=== PATIENT | male | born 1970 | race Caucasian/White ===

== ENCOUNTER 2017-12-03 07:25 | Day surgery (SDC) | payer OTHER ==
[2017-12-03] MEDS ORDERED: SIMETHICONE 40 MG/0.6 ML ML ONE (07:47)
[2017-12-03] MEDS ORDERED: MEPERIDINE HCL/PF 100 MG/ML AMP ONE (07:47)
[2017-12-03] MEDS: MIDAZOLAM HCL 5 MG/5 ML VIAL ONE ×3 (09:15→09:19)
[2017-12-03 13:07] VITALS: BP_SYST 124
== END 2017-12-03 10:20 | disposition home or self-care (01) ==
LOC: SDS 07:25 → SMU 07:25 → SDS 10:20
PROVIDERS: ATTEND Internal Medicine Gastroenterology
DX: Z12.11 Encounter for screening for malignant neoplasm of colon (principal); D12.3 Benign neoplasm of transverse colon; D12.5 Benign neoplasm of sigmoid colon; K64.8 Other hemorrhoids; K21.9 Gastro-esophageal reflux disease without esophagitis; E11.9 Type 2 diabetes mellitus without complications; Z79.84 Long term (current) use of oral hypoglycemic drugs; M19.90 Unspecified osteoarthritis, unspecified site; Z80.0 Family history of malignant neoplasm of digestive organs
CPT/HCPCS: 45380; 88305; J2175; J2250; J7030

== ENCOUNTER 2018-04-22 11:06 | Outpatient (CLI) | payer OTHER ==
[2018-04-22 11:38] LABS: BILIRUBIN,URINE NEGATIVE (NEGATIVE); BLOOD, URINE NEGATIVE (NEGATIVE); CLARITY/URINE CLEAR (CLEAR); COLOR,URINE YELLOW (YELLOW); GLUCOSE,URINE NEGATIVE (NEGATIVE); KETONES,URINE NEGATIVE (NEGATIVE); LEUKOCYTE ESTERASE ,URINE NEGATIVE (NEGATIVE); NITRITE, URINE NEGATIVE (NEGATIVE); PH,URINE 5.5 (5.0-8.0); PROTEIN URINE NEGATIVE (NEGATIVE); UROBILINOGEN,URINE 0.2 (0.2-1.0)
[2018-04-22 11:39] LABS: BASOPHILS # (AUTO) 0.1 K/uL (0.0-0.2); BASOPHILS % (AUTO) 0.9 % (0.0-2.0); EOSINOPHILS # (AUTO) 0.2 K/uL (0.0-0.4); EOSINOPHILS % (AUTO) 2.3 % (0.0-4.0); HEMATOCRIT 42.4 % (36-54); HEMOGLOBIN 14.5 g/dL (14.0-18.0); LYMPHOCYTES % (AUTO) 26.1 % (20.5-51.5); MEAN CORPUSCULAR HEMOGLOBIN 28 pg (27-31); MEAN CORPUSCULAR HGB CONC 34 % (32-36); MEAN CORPUSCULAR VOLUME 82 fL (79.0-98.0); MONOCYTES # (AUTO) 0.6 K/uL (0.0-1.0); MONOCYTES % (AUTO) 8.6 % (1.7-9.3); NEUTROPHILS # (AUTO) 4.7 K/uL (1.8-7.7); NEUTROPHILS % (AUTO) 62.1 % (40.0-70.0); PLATELET COUNT (AUTO) 344 K/uL (130-430); RED BLOOD CELL COUNT(AUTO) 5.19 MIL/uL (4.2-6.2); RED CELL DISTRIBUTION WIDTH 13.7 % (9.0-15.0); WHITE BLOOD COUNT (AUTO) 7.6 K/uL (4.8-10.8)
[2018-04-22 12:17] LABS: ALBUMIN 3.8 g/dL (3.4-4.8); CALCIUM 8.5 mg/dL (8.4-11.0); CREATININE 0.79 mg/dL (0.55-1.30); POTASSIUM 3.9 mmol/L (3.5-5.1); THYROID STIMULATING HORMONE 0.9 uIu/mL (0.34-4.82); TOTAL BILIRUBIN 0.7 mg/dL (0.0-1.0)
[2018-04-22 12:50] LABS: URIC ACID 7.7 mg/dL (2.4-7.0)
[2018-04-23 11:53] LABS: HEMOGLOBIN A1C 6.1 % (4.8-5.6)
== END 2018-04-22 20:23 | disposition home or self-care (01) ==
LOC: SLB 11:06
PROVIDERS: ATTEND Internal Medicine
DX: Z00.01 Encounter for general adult medical examination with abnormal findings (principal); K21.9 Gastro-esophageal reflux disease without esophagitis; E11.9 Type 2 diabetes mellitus without complications; E78.5 Hyperlipidemia, unspecified; R79.89 Other specified abnormal findings of blood chemistry
CPT/HCPCS: 36415; 80053; 80061; 81003; 82306; 82607; 83036; 84443-TC; 84550-TC; 85025

== ENCOUNTER 2018-12-06 10:13 | Outpatient (CLI) | payer OTHER ==
[2018-12-06 11:27] LABS: BASOPHILS # (AUTO) 0.1 K/uL (0.0-0.2); BASOPHILS % (AUTO) 0.7 % (0.0-2.0); EOSINOPHILS # (AUTO) 0.2 K/uL (0.0-0.4); EOSINOPHILS % (AUTO) 1.9 % (0.0-4.0); HEMATOCRIT 43.7 % (36-54); HEMOGLOBIN 14.3 g/dL (14.0-18.0); LYMPHOCYTES % (AUTO) 23.9 % (20.5-51.5); MEAN CORPUSCULAR HEMOGLOBIN 27 pg (27-31); MEAN CORPUSCULAR HGB CONC 33 % (32-36); MEAN CORPUSCULAR VOLUME 81 fL (79.0-98.0); MONOCYTES # (AUTO) 0.7 K/uL (0.0-1.0); MONOCYTES % (AUTO) 8.4 % (1.7-9.3); NEUTROPHILS # (AUTO) 5.2 K/uL (1.8-7.7); NEUTROPHILS % (AUTO) 65.1 % (40.0-70.0); PLATELET COUNT (AUTO) 397 K/uL (130-430); RED BLOOD CELL COUNT(AUTO) 5.37 MIL/uL (4.2-6.2); RED CELL DISTRIBUTION WIDTH 13.5 % (9.0-15.0); WHITE BLOOD COUNT (AUTO) 8.2 K/uL (4.8-10.8)
[2018-12-06 11:34] LABS: ALBUMIN 3.8 g/dL (3.4-4.8); CALCIUM 9.4 mg/dL (8.4-11.0); CREATININE 0.78 mg/dL (0.55-1.30); TOTAL BILIRUBIN 0.4 mg/dL (0.0-1.0)
[2018-12-07 09:53] LABS: HEMOGLOBIN A1C 5.8 % (4.8-5.6)
[2018-12-07 11:07] LABS: PROSTATE SPECIFIC AG 0.4 ng/mL (0.0-4.0)
== END 2018-12-06 21:09 | disposition home or self-care (01) ==
LOC: SLB 10:13
PROVIDERS: ATTEND Internal Medicine
DX: E11.9 Type 2 diabetes mellitus without complications (principal); E78.5 Hyperlipidemia, unspecified; E55.9 Vitamin D deficiency, unspecified; R33.9 Retention of urine, unspecified
CPT/HCPCS: 36415; 80053; 80061; 82306; 82550-TC; 82607; 83036; 84153; 85025

== ENCOUNTER 2019-01-30 14:56 | Emergency (ER) | payer OTHER ==
[~2019-01-30] VITALS: Ht 180.3 cm; Wt 127.0 kg
[2019-01-30 14:56] VITALS: BP_SYST 145
[2019-01-30] MEDS ORDERED: KETOROLAC TROMETHAMINE 60 MG/2 ML VIAL IM ONE (15:15)
[2019-01-30] MEDS ORDERED: COLCHICINE 0.6 MG TABLET PO ONE (15:15)
[2019-01-30] MEDS ORDERED: PREDNISONE 20 MG TABLET PO ONE (15:15)
[2019-01-30 16:45] VITALS: BP_SYST 145
== END 2019-01-30 16:45 | disposition home or self-care (01) ==
LOC: SED 14:56
DX: M10.071 Idiopathic gout, right ankle and foot (principal); E78.00 Pure hypercholesterolemia, unspecified; E11.9 Type 2 diabetes mellitus without complications; R03.0 Elevated blood-pressure reading, without diagnosis of hypertension
CPT/HCPCS: 36415; 84550; 96372; 99283; J1885; J7512

== ENCOUNTER 2019-08-17 11:14 | Outpatient (CLI) | payer OTHER ==
[2019-08-17 12:01] LABS: CALCIUM 8.7 mg/dL (8.4-11.0); CREATININE 0.99 mg/dL (0.55-1.30); POTASSIUM 3.8 mmol/L (3.5-5.1); TOTAL BILIRUBIN 0.5 mg/dL (0.0-1.0)
[2019-08-17 12:05] LABS: BASOPHILS % (AUTO) 0.7 % (0.0-2.0); EOSINOPHILS # (AUTO) 0.1 K/uL (0.0-0.4); EOSINOPHILS % (AUTO) 1.4 % (0.0-4.0); HEMATOCRIT 41.3 % (36-54); HEMOGLOBIN 13.9 g/dL (14.0-18.0); LYMPHOCYTES # (AUTO) 1.5 K/uL (1.0-5.5); LYMPHOCYTES % (AUTO) 24.2 % (20.5-51.5); MEAN CORPUSCULAR HEMOGLOBIN 28 pg (27-31); MEAN CORPUSCULAR HGB CONC 34 % (32-36); MEAN CORPUSCULAR VOLUME 82 fL (79.0-98.0); MONOCYTES # (AUTO) 0.5 K/uL (0.0-1.0); NEUTROPHILS # (AUTO) 4.1 K/uL (1.8-7.7); NEUTROPHILS % (AUTO) 65.7 % (40.0-70.0); PLATELET COUNT (AUTO) 271 K/uL (130-430); RED BLOOD CELL COUNT(AUTO) 5.04 MIL/uL (4.2-6.2); RED CELL DISTRIBUTION WIDTH 14.8 % (9.0-15.0); WHITE BLOOD COUNT (AUTO) 6.3 K/uL (4.8-10.8)
[2019-08-18 08:40] LABS: HEMOGLOBIN A1C 6.1 % (4.8-5.6)
== END 2019-08-17 18:43 | disposition home or self-care (01) ==
LOC: SLB 11:14
PROVIDERS: ATTEND Internal Medicine
DX: E78.5 Hyperlipidemia, unspecified (principal); E55.9 Vitamin D deficiency, unspecified; E11.65 Type 2 diabetes mellitus with hyperglycemia; H26.9 Unspecified cataract; R97.20 Elevated prostate specific antigen [PSA]
CPT/HCPCS: 36415; 71046-TC; 80053; 80061; 82306; 82607; 83036; 84153; 84550-TC; 85025; 93005

== ENCOUNTER 2021-02-18 11:00 | Outpatient (CLI) | payer OTHER ==
[2021-02-18 11:33] LABS: BASOPHILS # (AUTO) 0.1 K/uL (0.0-0.2); BASOPHILS % (AUTO) 0.8 % (0.0-2.0); EOSINOPHILS # (AUTO) 0.1 K/uL (0.0-0.4); EOSINOPHILS % (AUTO) 1.5 % (0.0-4.0); HEMATOCRIT 39.6 % (36-54); HEMOGLOBIN 13.3 g/dL (14.0-18.0); LYMPHOCYTES # (AUTO) 2.2 K/uL (1.0-5.5); LYMPHOCYTES % (AUTO) 25.7 % (20.5-51.5); MEAN CORPUSCULAR HEMOGLOBIN 28 pg (27-31); MEAN CORPUSCULAR HGB CONC 34 % (32-36); MEAN CORPUSCULAR VOLUME 83 fL (79.0-98.0); MONOCYTES # (AUTO) 0.7 K/uL (0.0-1.0); MONOCYTES % (AUTO) 8.7 % (1.7-9.3); NEUTROPHILS # (AUTO) 5.3 K/uL (1.8-7.7); NEUTROPHILS % (AUTO) 63.3 % (40.0-70.0); PLATELET COUNT (AUTO) 287 K/uL (130-430); RED BLOOD CELL COUNT(AUTO) 4.78 MIL/uL (4.2-6.2); WHITE BLOOD COUNT (AUTO) 8.4 K/uL (4.8-10.8)
[2021-02-18 11:34] LABS: BILIRUBIN,URINE NEGATIVE (NEGATIVE); BLOOD, URINE NEGATIVE (NEGATIVE); CLARITY/URINE CLEAR (CLEAR); COLOR,URINE YELLOW (YELLOW); GLUCOSE,URINE NEGATIVE (NEGATIVE); KETONES,URINE NEGATIVE (NEGATIVE); LEUKOCYTE ESTERASE ,URINE NEGATIVE (NEGATIVE); NITRITE, URINE NEGATIVE (NEGATIVE); PROTEIN URINE NEGATIVE (NEGATIVE)
[2021-02-18 12:12] LABS: ALBUMIN 3.9 g/dL (3.4-4.8); CALCIUM 9.2 mg/dL (8.4-11.0); CREATININE 0.9 mg/dL (0.55-1.30); POTASSIUM 3.8 mmol/L (3.5-5.1); THYROID STIMULATING HORMONE 1.19 uIu/mL (0.36-3.74); TOTAL BILIRUBIN 0.2 mg/dL (0.0-1.0)
[2021-02-19 15:07] LABS: PROSTATE SPECIFIC AG 0.3 ng/mL (0.0-4.0)
== END 2021-02-18 20:31 | disposition home or self-care (01) ==
LOC: SLB 11:00
PROVIDERS: ATTEND Internal Medicine
DX: I10 Essential (primary) hypertension (principal); E11.65 Type 2 diabetes mellitus with hyperglycemia; E78.1 Pure hyperglyceridemia; E66.01 Morbid (severe) obesity due to excess calories; E55.9 Vitamin D deficiency, unspecified; E78.5 Hyperlipidemia, unspecified; N52.9 Male erectile dysfunction, unspecified
CPT/HCPCS: 36415; 80053; 80061; 81003; 82306; 82607; 83036; 84153; 84443; 85025

== ENCOUNTER 2021-06-25 10:25 | Outpatient (CLI) | payer OTHER | END 2021-06-25 20:01 | disposition home or self-care (01) | LOC: SCA 10:25 | PROVIDERS: ATTEND Internal Medicine | DX: I51.7 Cardiomegaly (principal); R00.0 Tachycardia, unspecified | CPT/HCPCS: 93005; 93306 ==

== ENCOUNTER 2021-07-08 09:30 | Outpatient (CLI) | payer OTHER | END 2021-07-08 20:41 | disposition home or self-care (01) | LOC: SMI 09:30 | PROVIDERS: ATTEND Internal Medicine | DX: M51.34 Other intervertebral disc degeneration, thoracic region (principal); M46.04 Spinal enthesopathy, thoracic region; M48.04 Spinal stenosis, thoracic region; M51.36 Other intervertebral disc degeneration, lumbar region; M48.061 Spinal stenosis, lumbar region without neurogenic claudication | CPT/HCPCS: 72146; 72148 ==

== ENCOUNTER 2021-09-21 18:22 | Inpatient (IN) | payer OTHER ==
[~2021-09-21] VITALS: Ht 177.8 cm; Wt 135.3 kg
[2021-09-21 18:22] VITALS: BP_SYST 156
--- NOTE | 2021-09-21 18:22 | NUR ---
BROUGHT BACK TO BED #6 AND TRIAGED. REPORT GIVEN TO TERENCE
--- NOTE | 2021-09-21 18:24 | NUR ---
Pt brought by self, A&Ox4, pt presents to ER with epigastric pain/ nausea, no vomiting noted at this time, pt denies chest pain, skin pink and warm, cap refill <3, VSS.
[2021-09-21] MEDS ORDERED: KETOROLAC TROMETHAMINE 60 MG/2 ML VIAL IM ONE ×2 (18:30→18:43)
[2021-09-21] MEDS ORDERED: ONDANSETRON 4 MG ODT TAB PO ONE (18:30)
--- NOTE | 2021-09-21 18:35 | NUR ---
Dr Gomez evaluating patient at bedside
--- NOTE | 2021-09-21 19:10 | NUR ---
Pt medicated as ordered , well tolerated
[2021-09-21 19:19] LABS: BASOPHILS % (AUTO) 0.4 % (0.0-2.0); EOSINOPHILS % (AUTO) 0.1 % (0.0-4.0); HEMATOCRIT 44.2 % (36-54); HEMOGLOBIN 14.6 g/dL (14.0-18.0); LYMPHOCYTES # (AUTO) 0.9 K/uL (1.0-5.5); LYMPHOCYTES % (AUTO) 8.7 % (20.5-51.5); MEAN CORPUSCULAR HEMOGLOBIN 27 pg (27-31); MEAN CORPUSCULAR HGB CONC 33 % (32-36); MEAN CORPUSCULAR VOLUME 80 fL (79.0-98.0); MONOCYTES # (AUTO) 0.5 K/uL (0.0-1.0); MONOCYTES % (AUTO) 4.5 % (1.7-9.3); NEUTROPHILS # (AUTO) 9.3 K/uL (1.8-7.7); NEUTROPHILS % (AUTO) 86.3 % (40.0-70.0); PLATELET COUNT (AUTO) 320 K/uL (130-430); RED BLOOD CELL COUNT(AUTO) 5.52 MIL/uL (4.2-6.2); RED CELL DISTRIBUTION WIDTH 14.9 % (9.0-15.0); WHITE BLOOD COUNT (AUTO) 10.8 K/uL (4.8-10.8)
[2021-09-21 19:31] LABS: PROTHROMBIN TIME 10.4 SECS (9.5-12.5)
[2021-09-21 19:32] LABS: ANION GAP 7 (5-15); CALCIUM 9.7 mg/dL (8.4-11.0); CHLORIDE 100 mmol/L (98-107); CREATININE 0.95 mg/dL (0.55-1.30); GLUCOSE 175 mg/dL (70-99); POTASSIUM 4.6 mmol/L (3.5-5.1); SODIUM SERUM 138 mmol/L (136-145); UREA NITROGEN, BLOOD 14 mg/dL (8-21)
[2021-09-21 19:33] LABS: GFR AFRICAN AMERICAN 107 mL/min (>90)
[2021-09-21 19:45] LABS: ALANINE AMINOTRANSFERASE 65 U/L (12-78); ALBUMIN 4.2 g/dL (3.4-4.8); AMYLASE 65 U/L (0-100); ASPARTATE AMINOTRANSFERASE 30 U/L (10-37); LACTATE DEHYDROGENASE 137 U/L (85-227); LIPASE 85 U/L (73-393); TOTAL BILIRUBIN 0.4 mg/dL (0.0-1.0)
[2021-09-21 20:00] LABS: C-REACTIVE PROTEIN QUANT < 0.2 mg/dL (0-0.5)
[2021-09-21] MEDS ORDERED: MORPHINE 4 MG INJ. 4 MG/ML VIAL IVP ONE (20:30)
[2021-09-21] MEDS ORDERED: ONDANSETRON HCL 4 MG/2 ML VIAL IVP ONE (20:30)
[2021-09-21] MEDS ORDERED: NACL 0.9% 1,000 ML IV ONE (20:30)
[2021-09-21] MEDS ORDERED: ONDANSETRON HCL 4 MG/2 ML VIAL IVP PRN (21:00)
[2021-09-21] MEDS ORDERED: MORPHINE 4 MG INJ. 4 MG/ML VIAL IVP PRN (21:00)
[2021-09-21] MEDS ORDERED: INSULIN REGULAR, HUMAN 100 UNITS/ML, 10 ML VIAL (humuLIN R) SUBCUT PRN (21:00)
[2021-09-21] MEDS ORDERED: CYAN100T44 PO (21:11)
[2021-09-21] MEDS ORDERED: FENO160 PO (21:11)
[2021-09-21] MEDS ORDERED: METF-518 PO (21:11)
[2021-09-21] MEDS ORDERED: LOSA1TAB43 PO (21:11)
[2021-09-21] MEDS ORDERED: ICOS1CAP PO (21:11)
[2021-09-21] MEDS ORDERED: ALLO300T2 PO (21:11)
[2021-09-21] MEDS ORDERED: ASPI-1155 PO (21:11)
[2021-09-21] MEDS ORDERED: VITD2000 PO (21:11)
[2021-09-21] MEDS: NACL 0.9% 1,000 ML IV SCH (21:12)
--- NOTE | 2021-09-21 22:25 | NUR ---
Pt A&Ox4, VSS, respirations even and unlabored, no vomiting noted at this time.
[2021-09-21] MEDS ORDERED: PANTOPRAZOLE SODIUM 40 MG/VIAL (PROTONIX) ONE (22:39)
[2021-09-21] MEDS ORDERED: PANTOPRAZOLE SODIUM 40 MG/VIAL (PROTONIX) IVP ONE (22:45)
--- NOTE | 2021-09-21 23:09 | NUR ---
Patient will be admitted to care of Dr Chambers . Admitted to Medsurg unit. Will go to room 133A . Belongings list completed. Complete and up to date summary report printed. SBAR report to be given at bedside with opportunity for questions.
[2021-09-21 23:52] VITALS: BP_SYST 141
--- NOTE | 2021-09-22 | NUR ---
ADMISSION: The patient, KRISTOFER MORALES, 51 y/o, M admitted by EUSEBIA TRAN MD, was given written information regarding hospital policies, unit procedures and contact persons. Valuables were checked and FALL PRECAUTIONS implemented also procedures explained CALL HEALY GIVEN TO PATIENT .
[2021-09-22 00:40] LABS: BILIRUBIN,URINE NEGATIVE (NEGATIVE); BLOOD, URINE NEGATIVE (NEGATIVE); CLARITY/URINE CLEAR (CLEAR); COLOR,URINE YELLOW (YELLOW); GLUCOSE,URINE NEGATIVE (NEGATIVE); KETONES,URINE NEGATIVE (NEGATIVE); LEUKOCYTE ESTERASE ,URINE NEGATIVE (NEGATIVE); NITRITE, URINE NEGATIVE (NEGATIVE); PROTEIN URINE NEGATIVE (NEGATIVE); UROBILINOGEN,URINE 0.2 (0.2-1.0)
--- NOTE | 2021-09-22 00:47 | NUR ---
URINE COLLECTED & SENT TO LAB .
--- NOTE | 2021-09-22 00:47 | NUR ---
Patient states he has SLEEP APNEA & USES BI PAP @ HOME , BUT DOES NOT WANT TO USE THE C PAP MACHINE FROM THIS HOSPITAL D/T POSSIBLE CONTAMINATION , & RT , ALANA AT THE BEDSIDE .
[2021-09-22 04:14] VITALS: BP_SYST 137
--- NOTE | 2021-09-22 04:15 | NUR ---
Hourly Rounding patient Resting HOB elevated patient ambulates call hendricks given to patient assist for comfort pillows used for off loading skin dry warm .
[2021-09-22 08:00] VITALS: BP_SYST 125
--- NOTE | 2021-09-22 08:14 | NUR ---
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
[2021-09-22] MEDS: NACL 0.9% 1,000 ML IV SCH (08:24)
[2021-09-22] MEDS ORDERED: PANTOPRAZOLE SODIUM 40 MG/VIAL (PROTONIX) IVP SCH (09:00)
--- NOTE | 2021-09-22 09:26 | NUR ---
CONSULTATION PAGED/CALLED Reason for Consultation: ABDOMINAL PAIN Person Who was Notified: MARIE Consulting Physician: GEO Cytotechnologist/Cytology Supervisor Specialty: GI Ordering Physician: MARC
--- NOTE | 2021-09-22 09:32 | NUR ---
CONSULTATION PAGED/CALLED Reason for Consultation: SBO Person Who was Notified: DOROTHY Consulting Physician: MYNOR Wood Pole Treater Specialty: SURGERY Ordering Physician: MARC
--- NOTE | 2021-09-22 09:53 | NUR ---
CONSULTATION PAGED/CALLED Reason for Consultation: CP Person Who was Notified: DOROTHY Consulting Physician: TASHIA Manager Advertising Specialty: CARDIO Ordering Physician: MARC
[2021-09-22 09:55] LABS: BASOPHILS # (AUTO) 0.1 K/uL (0.0-0.2); BASOPHILS % (AUTO) 0.7 % (0.0-2.0); EOSINOPHILS # (AUTO) 0.1 K/uL (0.0-0.4); EOSINOPHILS % (AUTO) 1.6 % (0.0-4.0); HEMATOCRIT 39.1 % (36-54); HEMOGLOBIN 12.9 g/dL (14.0-18.0); LYMPHOCYTES # (AUTO) 1.8 K/uL (1.0-5.5); LYMPHOCYTES % (AUTO) 22.3 % (20.5-51.5); MEAN CORPUSCULAR HEMOGLOBIN 27 pg (27-31); MEAN CORPUSCULAR HGB CONC 33 % (32-36); MEAN CORPUSCULAR VOLUME 80 fL (79.0-98.0); MONOCYTES # (AUTO) 0.8 K/uL (0.0-1.0); MONOCYTES % (AUTO) 10.8 % (1.7-9.3); NEUTROPHILS # (AUTO) 5.1 K/uL (1.8-7.7); NEUTROPHILS % (AUTO) 64.6 % (40.0-70.0); PLATELET COUNT (AUTO) 252 K/uL (130-430); RED BLOOD CELL COUNT(AUTO) 4.87 MIL/uL (4.2-6.2); RED CELL DISTRIBUTION WIDTH 14.9 % (9.0-15.0); WHITE BLOOD COUNT (AUTO) 7.9 K/uL (4.8-10.8)
[2021-09-22 10:12] LABS: ANION GAP 6 (5-15); CALCIUM 8.4 mg/dL (8.4-11.0); CHLORIDE 107 mmol/L (98-107); CREATININE 0.94 mg/dL (0.55-1.30); GLUCOSE 102 mg/dL (70-99); POTASSIUM 4.2 mmol/L (3.5-5.1); SODIUM SERUM 142 mmol/L (136-145); UREA NITROGEN, BLOOD 15 mg/dL (8-21)
[2021-09-22 10:15] LABS: GFR AFRICAN AMERICAN 109 mL/min (>90)
[2021-09-22 10:19] LABS: CHOLESTEROL 145 mg/dL (<200); HDL CHOLESTEROL 24 mg/dL (>45); LDL CHOLESTEROL 55 mg/dL (<100); TRIGLYCERIDES 520 mg/dL (30-150)
[2021-09-22] MEDS ORDERED: GASTROGRAFIN 120 ML ONE (10:24)
[2021-09-22 10:30] LABS: ALANINE AMINOTRANSFERASE 50 U/L (12-78); ALBUMIN 3.6 g/dL (3.4-4.8); ASPARTATE AMINOTRANSFERASE 20 U/L (10-37); TOTAL BILIRUBIN 0.3 mg/dL (0.0-1.0)
[2021-09-22 10:35] LABS: FREE T4 (FREE THYROXINE) 1.3 ng/dL (0.6-1.6); THYROID STIMULATING HORMONE 1.21 uIu/mL (0.34-4.82)
--- NOTE | 2021-09-22 10:49 | NUR ---
PATIENT TAKEN FOR SMALL BOWEL FOLLOW THROUGH, IV DISCONNECTED FROM IV PUMP, PATIENT TAKEN IN WHEEL CHAIR, ALL QUESTIONS ANSWERED
[2021-09-22 12:00] VITALS: BP_SYST 140
--- NOTE | 2021-09-22 12:45 | NUR ---
patient returned from small bowel follow through with radiology, tolerated well, reconnected to iv fluids, patient asked if he could drink liquids now because he feels dehydrated, explained that the iv fluids would help rehydrate him and that he is still ordered to be NPO so no oral liquids can be given at this time.
--- NOTE | 2021-09-22 16:00 | NUR ---
PATIENT LEFT AMA, IV REMOVED, AMA FORM SIGNED AND IN CHART, WRIST BAND REMOVED, EDUCATED THAT HE IS NOT MEDICALLY CLEARED FOR DISCHARGE, HE SPOKE WITH DR TRAN OVER THE PHONE AND DR TRAN GAVE SOME SUGGESTIONS SUCH FOLLOWING A FULL LIQUID DIET FOR A COUPLE DAYS AND TO TAKE AN ANTACID SUCH PROTONIX IF HE HAS IT BUT HE DID NOT CLEAR HIM FOR DISCHARGE BECAUSE HE HAD NOT BEEN CLEARED BY DR GUARDADO YET.
--- NOTE | 2021-09-22 16:10 | NUR ---
PATIENT WALKED OUT AND ESCORTED OUT BY SECURITY, TOLERATED WELL
== END 2021-09-22 14:10 | disposition left against medical advice (07) | DRG 389 ==
LOC: SED 18:22 → SMU 20:57
PROVIDERS: ADMIT Internal Medicine; ATTEND Internal Medicine
DX: K56.609 Unspecified intestinal obstruction, unspecified as to partial versus complete obstruction (principal); Z68.41 Body mass index [BMI] 40.0-44.9, adult; E11.9 Type 2 diabetes mellitus without complications; E66.01 Morbid (severe) obesity due to excess calories; E78.5 Hyperlipidemia, unspecified; K76.0 Fatty (change of) liver, not elsewhere classified; R07.89 Other chest pain; Z20.822 Contact with and (suspected) exposure to COVID-19; Z53.29 Procedure and treatment not carried out because of patient's decision for other reasons; K57.90 Diverticulosis of intestine, part unspecified, without perforation or abscess without bleeding; I10 Essential (primary) hypertension; Z80.0 Family history of malignant neoplasm of digestive organs; Z82.49 Family history of ischemic heart disease and other diseases of the circulatory system; Z87.19 Personal history of other diseases of the digestive system; Z86.010 Personal history of colon polyps; Z88.2 Allergy status to sulfonamides; Z79.899 Other long term (current) drug therapy; Z79.82 Long term (current) use of aspirin; Z83.3 Family history of diabetes mellitus
CPT/HCPCS: 36415; 71045; 74250-TC; 76376; 76700-TC; 80053; 80061; 81003; 82150; 82962; 83036; 83605; 83615; 83690; 84153; 84439; 84443; 84484; 85025; 85610-TC; 85730-TC; 86140; 93005; C9113; J1885; J2270; J2405; Q0162; Q9963

== ENCOUNTER 2021-12-26 08:25 | Day surgery (SDC) | payer OTHER, SELFPAY ==
[~2021-12-26] VITALS: Ht 177.8 cm; Wt 83.9 kg
[~2021-12-26 08:25] MED LIST: ALLO300T2 PO; ASPI-1155 PO; CYAN100T44 PO; FENO160 PO; ICOS1CAP PO; LOSA1TAB43 PO; METF-518 PO; VITD2000 PO
[2021-12-26] MEDS: MIDAZOLAM HCL 5 MG/5 ML VIAL ONE ×4 (10:00→10:07)
[2021-12-26] MEDS ORDERED: MEPERIDINE 100 MG INJ. 100 MG/ML VIAL ONE (10:00)
[2021-12-26] MEDS ORDERED: MEPERIDINE 100 MG INJ. 100 MG/ML VIAL IV ONE ×2 (10:11→10:26)
[2021-12-26] MEDS ORDERED: MIDAZOLAM HCL 5 MG/5 ML VIAL ONE (10:20)
[2021-12-26 13:56] VITALS: BP_SYST 121
== END 2021-12-26 12:15 | disposition home or self-care (01) ==
LOC: SDS 08:25 → SMU 08:26 → SDS 12:15
PROVIDERS: ATTEND Internal Medicine Gastroenterology
DX: R19.4 Change in bowel habit (principal); K29.50 Unspecified chronic gastritis without bleeding; K64.8 Other hemorrhoids; E11.9 Type 2 diabetes mellitus without complications; Z80.0 Family history of malignant neoplasm of digestive organs; Z88.2 Allergy status to sulfonamides; Z20.822 Contact with and (suspected) exposure to COVID-19
CPT/HCPCS: 36415; 43239; 45380; 45385; 82962; 87081; 87426; 88305; 88312; 88313; 99152; 99153; G0378; J2175; J2250; U0003; 45382; 45384

== ENCOUNTER 2022-05-19 11:17 | Outpatient (CLI) | payer OTHER ==
[2022-05-19 12:16] LABS: BASOPHILS # (AUTO) 0.1 K/uL (0.0-0.2); EOSINOPHILS # (AUTO) 0.2 K/uL (0.0-0.4); EOSINOPHILS % (AUTO) 2.3 % (0.0-4.0); HEMATOCRIT 42.6 % (36-54); HEMOGLOBIN 14.6 g/dL (14.0-18.0); LYMPHOCYTES # (AUTO) 1.8 K/uL (1.0-5.5); LYMPHOCYTES % (AUTO) 26.3 % (20.5-51.5); MEAN CORPUSCULAR HEMOGLOBIN 27 pg (27-31); MEAN CORPUSCULAR HGB CONC 34 % (32-36); MEAN CORPUSCULAR VOLUME 79 fL (79.0-98.0); MONOCYTES # (AUTO) 0.6 K/uL (0.0-1.0); MONOCYTES % (AUTO) 9.6 % (1.7-9.3); NEUTROPHILS # (AUTO) 4.1 K/uL (1.8-7.7); NEUTROPHILS % (AUTO) 60.8 % (40.0-70.0); PLATELET COUNT (AUTO) 268 K/uL (130-430); RED BLOOD CELL COUNT(AUTO) 5.36 MIL/uL (4.2-6.2); RED CELL DISTRIBUTION WIDTH 14.6 % (9.0-15.0); WHITE BLOOD COUNT (AUTO) 6.7 K/uL (4.8-10.8)
[2022-05-19 12:41] LABS: BILIRUBIN,URINE NEGATIVE (NEGATIVE); BLOOD, URINE NEGATIVE (NEGATIVE); CLARITY/URINE CLEAR (CLEAR); COLOR,URINE YELLOW (YELLOW); GLUCOSE,URINE NEGATIVE (NEGATIVE); KETONES,URINE NEGATIVE (NEGATIVE); LEUKOCYTE ESTERASE ,URINE NEGATIVE (NEGATIVE); NITRITE, URINE NEGATIVE (NEGATIVE); PROTEIN URINE NEGATIVE (NEGATIVE); UROBILINOGEN,URINE 0.2 (0.2-1.0)
[2022-05-19 12:46] LABS: ALBUMIN 4.2 g/dL (3.4-4.8); CALCIUM 9.2 mg/dL (8.4-11.0); CREATININE 0.77 mg/dL (0.55-1.30); POTASSIUM 3.6 mmol/L (3.5-5.1); TOTAL BILIRUBIN 0.7 mg/dL (0.0-1.0); URIC ACID 5.4 mg/dL (2.4-7.0)
[2022-05-19 13:14] LABS: THYROID STIMULATING HORMONE 0.93 uIu/mL (0.36-3.74)
[2022-05-20 06:26] LABS: PROSTATE SPECIFIC AG 0.3 ng/mL (0.0-4.0)
[2022-05-26 14:45] LABS: HEMOGLOBIN A1C 6.2 % (4.8-5.6)
== END 2022-05-19 19:50 | disposition home or self-care (01) ==
LOC: SLB 11:17
PROVIDERS: ATTEND Internal Medicine
DX: E11.65 Type 2 diabetes mellitus with hyperglycemia (principal); M17.4 Other bilateral secondary osteoarthritis of knee; M10.9 Gout, unspecified; E66.2 Morbid (severe) obesity with alveolar hypoventilation; E78.5 Hyperlipidemia, unspecified
CPT/HCPCS: 36415; 80053; 80061; 81003; 82306; 82607; 83036; 84153; 84443; 84550; 85025

== ENCOUNTER 2022-08-04 08:20 | Outpatient (CLI) | payer OTHER ==
[2022-08-04 09:29] LABS: CALCIUM 9.4 mg/dL (8.4-11.0); CREATININE 0.96 mg/dL (0.55-1.30); POTASSIUM 4.3 mmol/L (3.5-5.1); TOTAL BILIRUBIN 0.5 mg/dL (0.0-1.0)
[2022-08-04 09:40] LABS: URIC ACID 4.4 mg/dL (2.4-7.0)
[2022-08-04 09:41] LABS: THYROID STIMULATING HORMONE 1.14 uIu/mL (0.34-4.82)
[2022-08-04 09:43] LABS: BASOPHILS # (AUTO) 0.1 K/uL (0.0-0.2); BASOPHILS % (AUTO) 0.8 % (0.0-2.0); EOSINOPHILS # (AUTO) 0.2 K/uL (0.0-0.4); EOSINOPHILS % (AUTO) 2.7 % (0.0-4.0); HEMATOCRIT 39.1 % (36-54); HEMOGLOBIN 13.6 g/dL (14.0-18.0); LYMPHOCYTES # (AUTO) 1.8 K/uL (1.0-5.5); LYMPHOCYTES % (AUTO) 26.8 % (20.5-51.5); MEAN CORPUSCULAR HEMOGLOBIN 28 pg (27-31); MEAN CORPUSCULAR HGB CONC 35 % (32-36); MEAN CORPUSCULAR VOLUME 79 fL (79.0-98.0); MONOCYTES # (AUTO) 0.8 K/uL (0.0-1.0); MONOCYTES % (AUTO) 11.6 % (1.7-9.3); NEUTROPHILS # (AUTO) 3.9 K/uL (1.8-7.7); NEUTROPHILS % (AUTO) 58.1 % (40.0-70.0); PLATELET COUNT (AUTO) 313 K/uL (130-430); RED BLOOD CELL COUNT(AUTO) 4.92 MIL/uL (4.2-6.2); RED CELL DISTRIBUTION WIDTH 14.8 % (9.0-15.0); WHITE BLOOD COUNT (AUTO) 6.7 K/uL (4.8-10.8)
[2022-08-05 10:31] LABS: HEMOGLOBIN A1C 6.3 % (4.8-5.6)
[2022-08-05 13:07] LABS: PROSTATE SPECIFIC AG 0.3 ng/mL (0.0-4.0)
== END 2022-08-04 18:56 | disposition home or self-care (01) ==
LOC: SRD 08:20
PROVIDERS: ATTEND Specialist
DX: I11.9 Hypertensive heart disease without heart failure (principal); E11.65 Type 2 diabetes mellitus with hyperglycemia; R00.0 Tachycardia, unspecified; E66.01 Morbid (severe) obesity due to excess calories; E78.2 Mixed hyperlipidemia; N52.8 Other male erectile dysfunction; E53.8 Deficiency of other specified B group vitamins; E55.9 Vitamin D deficiency, unspecified
CPT/HCPCS: 36415; 80053; 80061; 82607; 83002; 83036; 84153; 84403; 84443; 84550; 85025; 86677; 93005; 93306

== ENCOUNTER 2022-12-22 10:34 | Outpatient (CLI) | payer OTHER ==
[2022-12-22 11:29] LABS: BASOPHILS # (AUTO) 0.1 K/uL (0.0-0.2); BASOPHILS % (AUTO) 1.1 % (0.0-2.0); EOSINOPHILS # (AUTO) 0.1 K/uL (0.0-0.4); HEMATOCRIT 40.9 % (36-54); HEMOGLOBIN 13.6 g/dL (14.0-18.0); LYMPHOCYTES # (AUTO) 1.5 K/uL (1.0-5.5); LYMPHOCYTES % (AUTO) 23.6 % (20.5-51.5); MEAN CORPUSCULAR HEMOGLOBIN 27 pg (27-31); MEAN CORPUSCULAR HGB CONC 33 % (32-36); MEAN CORPUSCULAR VOLUME 81 fL (79.0-98.0); MONOCYTES # (AUTO) 0.6 K/uL (0.0-1.0); MONOCYTES % (AUTO) 9.2 % (1.7-9.3); NEUTROPHILS # (AUTO) 4.1 K/uL (1.8-7.7); NEUTROPHILS % (AUTO) 64.1 % (40.0-70.0); PLATELET COUNT (AUTO) 288 K/uL (130-430); RED BLOOD CELL COUNT(AUTO) 5.08 MIL/uL (4.2-6.2); RED CELL DISTRIBUTION WIDTH 14.4 % (9.0-15.0); WHITE BLOOD COUNT (AUTO) 6.3 K/uL (4.8-10.8)
[2022-12-22 12:02] LABS: CALCIUM 9.2 mg/dL (8.4-11.0); CREATININE 0.91 mg/dL (0.55-1.30); THYROID STIMULATING HORMONE 0.64 uIu/mL (0.34-4.82); TOTAL BILIRUBIN 0.4 mg/dL (0.0-1.0)
== END 2022-12-22 18:13 | disposition home or self-care (01) ==
LOC: SLB 10:34
PROVIDERS: ATTEND Internal Medicine
DX: E11.65 Type 2 diabetes mellitus with hyperglycemia (principal); E78.5 Hyperlipidemia, unspecified; E66.9 Obesity, unspecified; E55.9 Vitamin D deficiency, unspecified; E56.9 Vitamin deficiency, unspecified
CPT/HCPCS: 36415; 80053; 80061; 82306; 82607; 83037; 84443; 85025

== ENCOUNTER 2023-07-27 13:35 | Outpatient (CLI) | payer OTHER ==
[2023-07-27 15:15] LABS: BASOPHILS # (AUTO) 0.1 K/uL (0.0-0.2); BASOPHILS % (AUTO) 1.4 % (0.0-2.0); EOSINOPHILS # (AUTO) 0.2 K/uL (0.0-0.4); EOSINOPHILS % (AUTO) 1.7 % (0.0-4.0); HEMATOCRIT 42.8 % (36-54); HEMOGLOBIN 14.7 g/dL (14.0-18.0); LYMPHOCYTES % (AUTO) 22.1 % (20.5-51.5); MEAN CORPUSCULAR HEMOGLOBIN 28 pg (27-31); MEAN CORPUSCULAR HGB CONC 34 % (32-36); MEAN CORPUSCULAR VOLUME 80 fL (79.0-98.0); MONOCYTES # (AUTO) 0.9 K/uL (0.0-1.0); MONOCYTES % (AUTO) 9.5 % (1.7-9.3); NEUTROPHILS % (AUTO) 65.3 % (40.0-70.0); PLATELET COUNT (AUTO) 336 K/uL (130-430); RED BLOOD CELL COUNT(AUTO) 5.34 MIL/uL (4.2-6.2); RED CELL DISTRIBUTION WIDTH 14.9 % (9.0-15.0); WHITE BLOOD COUNT (AUTO) 9.1 K/uL (4.8-10.8)
[2023-07-27 15:16] LABS: HEMOGLOBIN A1C 5.86 % (<5.7)
[2023-07-27 15:30] LABS: ALBUMIN 3.8 g/dL (3.4-4.8); CALCIUM 7.7 mg/dL (8.4-11.0); CREATININE 0.72 mg/dL (0.55-1.30); POTASSIUM 3.8 mmol/L (3.5-5.1); THYROID STIMULATING HORMONE 0.99 uIu/mL (0.36-3.74); TOTAL BILIRUBIN 0.7 mg/dL (0.0-1.0); TOTAL PROTEIN, SERUM 7.8 g/dL (6.4-8.3); URIC ACID 4.9 mg/dL (2.4-7.0)
[2023-07-28 06:06] LABS: PROSTATE SPECIFIC AG 0.3 ng/mL (0.0-4.0)
== END 2023-07-27 20:10 | disposition home or self-care (01) ==
LOC: SLB 13:35
PROVIDERS: ATTEND Internal Medicine
DX: E11.65 Type 2 diabetes mellitus with hyperglycemia (principal); E78.5 Hyperlipidemia, unspecified; N40.1 Benign prostatic hyperplasia with lower urinary tract symptoms; E55.9 Vitamin D deficiency, unspecified; E56.9 Vitamin deficiency, unspecified
CPT/HCPCS: 36415; 80053; 80061; 82306; 82607; 83037; 84153; 84443; 84550; 85025

== ENCOUNTER 2023-08-03 09:05 | Outpatient (CLI) | payer OTHER | END 2023-08-03 19:41 | disposition home or self-care (01) | LOC: SUS 09:05 | PROVIDERS: ATTEND Internal Medicine | DX: E04.2 Nontoxic multinodular goiter (principal) | CPT/HCPCS: 76536-TC ==

== ENCOUNTER 2023-08-14 11:51 | Outpatient (CLI) | payer OTHER | END 2023-08-14 19:35 | disposition home or self-care (01) | LOC: SRD 11:51 | PROVIDERS: ATTEND Internal Medicine | DX: M17.11 Unilateral primary osteoarthritis, right knee (principal) | CPT/HCPCS: 73564 ==

== ENCOUNTER 2023-08-31 09:51 | Outpatient (CLI) | payer OTHER | END 2023-08-31 17:49 | disposition home or self-care (01) | LOC: SMI 09:51 | PROVIDERS: ATTEND Internal Medicine | DX: M48.02 Spinal stenosis, cervical region (principal); M50.21 Other cervical disc displacement, high cervical region; M51.24 Other intervertebral disc displacement, thoracic region; M51.34 Other intervertebral disc degeneration, thoracic region; M51.27 Other intervertebral disc displacement, lumbosacral region; M47.817 Spondylosis without myelopathy or radiculopathy, lumbosacral region; M48.061 Spinal stenosis, lumbar region without neurogenic claudication; M25.78 Osteophyte, vertebrae; Z87.898 Personal history of other specified conditions | CPT/HCPCS: 72141; 72146; 72148 ==

== ENCOUNTER 2023-09-17 10:36 | Emergency (ER) | payer OTHER ==
[~2023-09-17] VITALS: Ht 177.8 cm; Wt 121.6 kg
[2023-09-17 10:44] VITALS: BP_SYST 142; PULSE 103; RESP 18; TEMP 98.3; O2SAT 97
[2023-09-17 11:35] LABS: BASOPHILS % (AUTO) 0.5 % (0.0-2.0); EOSINOPHILS % (AUTO) 0.1 % (0.0-4.0); HEMATOCRIT 48.1 % (36-54); HEMOGLOBIN 15.4 g/dL (14.0-18.0); LYMPHOCYTES # (AUTO) 0.9 K/uL (1.0-5.5); LYMPHOCYTES % (AUTO) 9.5 % (20.5-51.5); MEAN CORPUSCULAR HEMOGLOBIN 26 pg (27-31); MEAN CORPUSCULAR HGB CONC 32 % (32-36); MEAN CORPUSCULAR VOLUME 80 fL (79.0-98.0); MONOCYTES # (AUTO) 0.6 K/uL (0.0-1.0); MONOCYTES % (AUTO) 6.1 % (1.7-9.3); NEUTROPHILS # (AUTO) 7.9 K/uL (1.8-7.7); NEUTROPHILS % (AUTO) 83.8 % (40.0-70.0); PLATELET COUNT (AUTO) 312 K/uL (130-430); RED BLOOD CELL COUNT(AUTO) 6.05 MIL/uL (4.2-6.2); RED CELL DISTRIBUTION WIDTH 15.1 % (9.0-15.0); WHITE BLOOD COUNT (AUTO) 9.4 K/uL (4.8-10.8)
[2023-09-17 11:45] LABS: ANION GAP 10 (5-15); CALCIUM 10.4 mg/dL (8.4-11.0); CARBON DIOXIDE 30 mmol/L (23-29); CHLORIDE 98 mmol/L (98-107); CREATININE 0.96 mg/dL (0.55-1.30); GFR AFRICAN AMERICAN 105 mL/min (>90); GLUCOSE 116 mg/dL (74-106); POTASSIUM 4.3 mmol/L (3.5-5.1); SODIUM SERUM 138 mmol/L (136-145); UREA NITROGEN, BLOOD 16 mg/dL (8-21)
[2023-09-17] MEDS ORDERED: MORPHINE 4 MG INJ. 4 MG/ML VIAL IM ONE (11:45)
[2023-09-17] MEDS ORDERED: ONDANSETRON 4 MG ODT TAB PO ONE (11:45)
[2023-09-17 11:51] LABS: ALANINE AMINOTRANSFERASE 38 U/L (12-78); ALBUMIN 4.6 g/dL (3.4-4.8); ASPARTATE AMINOTRANSFERASE 21 U/L (10-37); LIPASE 28 U/L (16-77); TOTAL BILIRUBIN 0.7 mg/dL (0.0-1.0); TOTAL PROTEIN, SERUM 8.9 g/dL (6.4-8.3)
[2023-09-17 11:53] LABS: GFR NON AFRICAN-AMERICAN 87 mL/min (>90)
[2023-09-17 11:54] LABS: INR 1.1 (0.80-1.20); PROTHROMBIN TIME 11.1 SECS (9.5-12.5)
[2023-09-17 12:02] LABS: ACETONE, SERUM NEGATIVE (NEGATIVE)
[2023-09-17 12:04] LABS: AMYLASE 50 U/L (0-100)
[2023-09-17] MEDS ORDERED: PANTOPRAZOLE SODIUM 40 MG TAB PO ONE (13:00)
[2023-09-17] MEDS ORDERED: OMEP20CA15 PO (13:53)
[2023-09-17] MEDS ORDERED: ONDA-8 TL (13:53)
[2023-09-17 13:59] VITALS: BP_SYST 130; PULSE 81; RESP 20; TEMP 98.3; O2SAT 97
== END 2023-09-17 13:59 | disposition home or self-care (01) ==
LOC: SED 10:36
DX: K29.70 Gastritis, unspecified, without bleeding (principal); R10.12 Left upper quadrant pain; R11.2 Nausea with vomiting, unspecified; R07.2 Precordial pain; E11.9 Type 2 diabetes mellitus without complications; I10 Essential (primary) hypertension; Z79.899 Other long term (current) drug therapy
CPT/HCPCS: 99285; 74176; 71045; 80053; 82009; 82150; 83690; 85025; 85610; 85730; 84484; 36415; 93005; 76376; 96372; 83605; 82397; Q0162; J2270

== ENCOUNTER 2023-10-26 10:12 | Outpatient (CLI) | payer OTHER ==
[~2023-10-26 10:12] MED LIST changes: +OMEP20CA15 PO; +ONDA-8 TL
[2023-10-26 11:33] LABS: ALBUMIN 4.1 g/dL (3.4-4.8); CALCIUM 9.8 mg/dL (8.4-11.0); CREATININE 0.77 mg/dL (0.55-1.30); FREE T4 (FREE THYROXINE) 1.2 ng/dL (0.6-1.6); POTASSIUM 4.2 mmol/L (3.5-5.1); THYROID STIMULATING HORMONE 1.03 uIu/mL (0.34-4.82); TOTAL BILIRUBIN 0.5 mg/dL (0.0-1.0); TOTAL PROTEIN, SERUM 7.8 g/dL (6.4-8.3)
[2023-10-27 11:06] LABS: CORTISOL (SERUM) 10.5 ug/dL (6.2-19.4)
[2023-10-27 15:06] LABS: THYROID PEROXIDASE (TPO) AB 10 IU/mL (0-34)
[2023-10-28 12:06] LABS: ACTH, PLASMA 67.9 pg/mL (7.2-63.3)
[2023-11-02 12:18] LABS: CREATININE, URINE 88.9 mg/dL; MICROALBUMIN URINE RANDOM 3.2 ug/ml (NOT ESTABLISHED)
[2023-11-02 12:19] LABS: ALDOSTERONE 3.1; ANTI-THYROGLOBULIN AB <1.0
== END 2023-10-26 19:11 | disposition home or self-care (01) ==
LOC: SLB 10:12
PROVIDERS: ATTEND Internal Medicine
DX: E11.65 Type 2 diabetes mellitus with hyperglycemia (principal); E78.5 Hyperlipidemia, unspecified; E55.9 Vitamin D deficiency, unspecified; R00.0 Tachycardia, unspecified; M54.40 Lumbago with sciatica, unspecified side; E04.2 Nontoxic multinodular goiter; D35.01 Benign neoplasm of right adrenal gland; D35.00 Benign neoplasm of unspecified adrenal gland; E26.09 Other primary hyperaldosteronism; I15.9 Secondary hypertension, unspecified
CPT/HCPCS: 36415; 80053; 80061; 82024; 82043; 82088; 82306; 82530; 82533; 82570; 82607; 82627; 83037; 83835; 84244; 84439; 84443; 86376; 86800

== ENCOUNTER 2024-05-28 08:30 | Outpatient (CLI) | payer OTHER ==
[2024-05-28 09:15] LABS: BILIRUBIN,URINE NEGATIVE (NEGATIVE); BLOOD, URINE NEGATIVE (NEGATIVE); CLARITY/URINE CLEAR (CLEAR); COLOR,URINE YELLOW (YELLOW); GLUCOSE,URINE NEGATIVE (NEGATIVE); KETONES,URINE NEGATIVE (NEGATIVE); LEUKOCYTE ESTERASE ,URINE NEGATIVE (NEGATIVE); NITRITE, URINE NEGATIVE (NEGATIVE); PROTEIN URINE NEGATIVE (NEGATIVE)
[2024-05-28 09:20] LABS: BASOPHILS # (AUTO) 0.1 K/uL (0.0-0.2); EOSINOPHILS # (AUTO) 0.2 K/uL (0.0-0.4); EOSINOPHILS % (AUTO) 2.3 % (0.0-4.0); HEMATOCRIT 42.1 % (36-54); LYMPHOCYTES # (AUTO) 1.6 K/uL (1.0-5.5); LYMPHOCYTES % (AUTO) 24.1 % (20.5-51.5); MEAN CORPUSCULAR HEMOGLOBIN 27 pg (27-31); MEAN CORPUSCULAR HGB CONC 33 % (32-36); MEAN CORPUSCULAR VOLUME 82 fL (79.0-98.0); MONOCYTES # (AUTO) 0.7 K/uL (0.0-1.0); MONOCYTES % (AUTO) 10.4 % (1.7-9.3); NEUTROPHILS # (AUTO) 4.2 K/uL (1.8-7.7); NEUTROPHILS % (AUTO) 62.2 % (40.0-70.0); PLATELET COUNT (AUTO) 319 K/uL (130-430); RED BLOOD CELL COUNT(AUTO) 5.14 MIL/uL (4.2-6.2); RED CELL DISTRIBUTION WIDTH 14.4 % (9.0-15.0); WHITE BLOOD COUNT (AUTO) 6.8 K/uL (4.8-10.8)
[2024-05-28 10:23] LABS: ALANINE AMINOTRANSFERASE 32 U/L (12-78); ANION GAP 8 (5-15); ASPARTATE AMINOTRANSFERASE 18 U/L (10-37); CALCIUM 9.6 mg/dL (8.4-11.0); CARBON DIOXIDE 29 mmol/L (23-29); CHLORIDE 103 mmol/L (98-107); CREATININE 0.86 mg/dL (0.55-1.30); GFR AFRICAN AMERICAN 120 mL/min (>90); GFR NON AFRICAN-AMERICAN 99 mL/min (>90); GLUCOSE 100 mg/dL (74-106); POTASSIUM 4.2 mmol/L (3.5-5.1); SODIUM SERUM 140 mmol/L (136-145); THYROID STIMULATING HORMONE 1.36 uIu/mL (0.36-3.74); TOTAL BILIRUBIN 0.4 mg/dL (0.0-1.0); TOTAL PROTEIN, SERUM 7.6 g/dL (6.4-8.3); UREA NITROGEN, BLOOD 13 mg/dL (8-21)
[2024-05-28 11:45] LABS: HEMOGLOBIN A1C 5.37 % (<5.7)
[2024-05-28 22:14] LABS: TRIGLYCERIDES 447 mg/dL (30-150)
[2024-05-28 22:15] LABS: CHOLESTEROL 143 mg/dL (<200); HDL CHOLESTEROL 26 mg/dL (>45)
== END 2024-05-28 19:27 | disposition home or self-care (01) ==
LOC: SLB 08:30
PROVIDERS: ATTEND Internal Medicine
DX: E78.5 Hyperlipidemia, unspecified (principal); E11.65 Type 2 diabetes mellitus with hyperglycemia; E55.9 Vitamin D deficiency, unspecified; N40.0 Benign prostatic hyperplasia without lower urinary tract symptoms
CPT/HCPCS: 36415; 80053; 80061; 81001; 81003; 82306; 83037; 84153; 84443; 85025